=== PATIENT | male | born 1995 | race Caucasian/White ===

== ENCOUNTER → 2024-03-08 | Outpatient (CLI) | payer BC | LOC: M WUC 08:19 | PROVIDERS: ATTEND Physician Assistant Medical | DX: M25.462 Effusion, left knee (principal) ==

== ENCOUNTER → 2024-03-17 | Outpatient (CLI) | payer BC | LOC: M RAD 09:01 | PROVIDERS: ATTEND Physician Assistant | DX: M70.41 Prepatellar bursitis, right knee (principal) ==

== ENCOUNTER → 2025-09-11 | Outpatient (REF) | payer BC | LOC: M LAB REF 10:39 | DX: L29.0 Pruritus ani (principal) ==

== ENCOUNTER → 2025-09-25 | Outpatient (REF) | payer BC, OTHER ==
[~2025-09-25] MED LIST: KETO-204 PO; PROT20TA11 PO; SIME80CH6 PO; VALA-3
[2025-09-25 23:31] LABS: APPEARANCE, URINE CLEAR (CLEAR); BACTERIA, URINE AUTO NEGATIVE (NEGATIVE); BILIRUBIN, URINE AUTO NEGATIVE (NEGATIVE); BLOOD, URINE BLOOD NEGATIVE (NEGATIVE); GLUCOSE, URINE (UA) AUTO NEGATIVE (NEGATIVE); KETONE, URINE AUTO NEGATIVE (NEGATIVE); LEUKOCYTE ESTERASE, URINE AUTO NEGATIVE (NEGATIVE); NITRITE, URINE AUTO NEGATIVE (NEGATIVE); PROTEIN, URINE AUTO NEGATIVE (NEGATIVE); RBC, URINE AUTO 0 /HPF (0-3); SPECIFIC GRAVITY URINE AUTO 1.019 (1.002-1.035); SQUAMOUS EPITHELIAL CELL UR AU 0 /HPF (0-6); UROBILINOGEN, URINE AUTO 0.2 mg/dL (0.0-2.0); WBC, URINE AUTO 0 /HPF (0-3)
== END ==
LOC: M LAB REF 23:04
PROVIDERS: ATTEND Physician Assistant Medical
DX: N39.0 Urinary tract infection, site not specified (principal)

== ENCOUNTER 2025-09-28 07:17 | Emergency (ER) | payer BC, OTHER ==
[~2025-09-28] VITALS: Ht 182.9 cm; Wt 92.6 kg
[2025-09-28] MEDS ORDERED: VALA-3 (07:25)
[2025-09-28] MEDS: KETOROLAC 30 MG/ML 1 ML VIAL IV ONE (08:44)
[2025-09-28 09:16] LABS: BASO # 0.0 10^3/uL (0.0-0.2); BASO % 0.6 % (0.0-1.0); EOS # 0.3 10^3/uL (0.0-0.5); EOS % 5.5 % (0.0-3.0); LYMPH # 2.4 10^3/uL (1.5-5.0); LYMPH % 48.9 % (24.0-44.0); MONO # 0.6 10^3/uL (0.0-0.8); MONO % 11.3 % (2.0-8.0); NEUTROPHILS # 1.7 10^3/uL (1.5-8.5); NEUTROPHILS % 33.5 % (36.0-66.0); PLATELET COUNT, AUTOMATED 394 10^3/uL (150-450)
[2025-09-28 09:28] LABS: ALT/SGPT 26 U/L (7.0-40); AST/SGOT 29 U/L (<34); CALCIUM LEVEL 9.5 MG/DL (8.5-10.1); CARBON DIOXIDE LEVEL 26 MMOL/L (20-31); CHLORIDE LEVEL 103 MMOL/L (98-107); CREATININE FOR GFR 0.74 MG/DL (0.70-1.30); GLOMERULAR FILTRATION RATE > 90.0 (>60); POTASSIUM SERUM 4.3 MMOL/L (3.5-5.1); SODIUM LEVEL 137 MMOL/L (136-145)
[2025-09-28 09:57] LABS: APPEARANCE, URINE CLEAR (CLEAR); BACTERIA, URINE AUTO NEGATIVE (NEGATIVE); BILIRUBIN, URINE AUTO NEGATIVE (NEGATIVE); BLOOD, URINE BLOOD NEGATIVE (NEGATIVE); GLUCOSE, URINE (UA) AUTO NEGATIVE (NEGATIVE); KETONE, URINE AUTO NEGATIVE (NEGATIVE); LEUKOCYTE ESTERASE, URINE AUTO NEGATIVE (NEGATIVE); NITRITE, URINE AUTO NEGATIVE (NEGATIVE); PROTEIN, URINE AUTO NEGATIVE (NEGATIVE); RBC, URINE AUTO 1 /HPF (0-3); SPECIFIC GRAVITY URINE AUTO 1.014 (1.002-1.035); SQUAMOUS EPITHELIAL CELL UR AU 0 /HPF (0-6); UROBILINOGEN, URINE AUTO 0.2 mg/dL (0.0-2.0); WBC, URINE AUTO 0 /HPF (0-3)
[2025-09-28 10:47] VITALS: TEMP 97
[2025-09-28] MEDS ORDERED: PROT20TA11 PO (11:20)
[2025-09-28] MEDS ORDERED: SIME80CH6 PO (11:20)
[2025-09-28] MEDS ORDERED: KETO-204 PO (11:20)
[2025-09-28 11:28] VITALS: BP 131/75
[2025-09-28 11:29] VITALS: O2SAT 98
== END 2025-09-28 11:36 | disposition home or self-care (01) ==
LOC: M ED 07:17
DX: R10.12 Left upper quadrant pain (principal); Z79.2 Long term (current) use of antibiotics; Z79.899 Other long term (current) drug therapy
CPT/HCPCS: 74176; 80048; 80076; 81001; 83690; 85025; 96374; 99284; J1885

== ENCOUNTER 2025-10-17 14:40 | Emergency (ER) | payer OTHER, BC ==
[~2025-10-17] VITALS: Ht 182.9 cm; Wt 95.3 kg
[2025-10-17] MEDS: KETOROLAC 30 MG/ML 1 ML VIAL IM ONE (19:17)
[2025-10-17 19:39] VITALS: BP 134/88; TEMP 97.8; O2SAT 99
== END 2025-10-17 19:41 | disposition home or self-care (01) ==
LOC: M ED 14:40
DX: S01.01XA Laceration without foreign body of scalp, initial encounter (principal); Y92.9 Unspecified place or not applicable; Y93.9 Activity, unspecified; Y99.0 Civilian activity done for income or pay; W22.8XXA Striking against or struck by other objects, initial encounter; Z79.2 Long term (current) use of antibiotics
CPT/HCPCS: 12001; 70450; 96372; 99283; J1885